=== PATIENT | female | born 1970 | race Caucasian/White ===

== ENCOUNTER 2022-07-17 22:43 | Emergency (ER) | payer MEDICARE, MEDICAID ==
[~2022-07-17] VITALS: Ht 170.2 cm; Wt 65.9 kg
--- NOTE | 2022-07-17 23:01 | NUR ---
PT REQUESTING XRAYS OF BILAT LOWER LEGS. GOOD ROM A TTHIS TIME.
--- NOTE | 2022-07-17 23:04 | NUR ---
PER DR STEFAN THAPA TOP ORDER BILAT KNEE DOWN XRAYS
--- NOTE | 2022-07-18 03:08 | NUR ---
doctor ordered for the ring on left foot second digit to be removed but the patient refused to have the ring removed and stated if i need ring removed i can call the fire dept to come out and remove the toe ring its made of silver and dont want ring removed
[2022-07-18 03:24] VITALS: BP 120/80
== END 2022-07-18 03:22 | disposition home or self-care (01) ==
LOC: ER 22:44
DX: T84.023A Instability of internal left knee prosthesis, initial encounter (principal); T84.022A Instability of internal right knee prosthesis, initial encounter; G89.29 Other chronic pain; I10 Essential (primary) hypertension; Z88.6 Allergy status to analgesic agent; Z88.2 Allergy status to sulfonamides; Z79.899 Other long term (current) drug therapy
CPT/HCPCS: 73564; 73590; 73610; 99284

== ENCOUNTER 2024-06-17 15:17 | Emergency (ER) | payer MEDICARE, MEDICAID ==
[~2024-06-17] VITALS: Ht 171.4 cm; Wt 71.8 kg
[~2024-06-17 15:17] MED LIST: ALPR-624 PO; B12 INJ; CHOL50004 PO; DIPH25CA83 PO; FOLI0.4T6 PO; GABA-530 PO; HYDR-3686 PO; HYDROCODONE PO; LORA10CA PO; PANT40TA54 PO; RIME75TA PO; Robaxin PO; SUCR1ORA12 PO; TEMA15CA PO; TRINTELLEX PO; thiamine tablet PO
[2024-06-17 18:03] LABS: BASOPHILS # (AUTO) 0.1 X10'3 (0-0.2); EOSINOPHILS # (AUTO) 0.4 X10'3 (0-0.9); EOSINOPHILS % (AUTO) 4.9 % (0-6); HEMATOCRIT 36.8 % (35.0-45.0); HEMOGLOBIN 12.5 g/dl (12.0-16.0); LYMPHOCYTES # (AUTO) 3.8 X10'3 (1.1-4.8); MEAN CORPUSCULAR HGB CONC 34.1 g/dL (33.0-36.5); MEAN PLATELET VOLUME 8.1 FL (7.4-10.4); MONOCYTES # (AUTO) 0.5 X10'3 (0-0.9); MONOCYTES % (AUTO) 6.2 % (2-12); NEUTROPHILS # (AUTO) 3.1 X10'3 (1.8-7.7); NEUTROPHILS % (AUTO) 39.9 % (42-75); PLATELET COUNT 277 X10'3 (140-440); RED BLOOD COUNT 4.04 X10'6 (4.20-5.60); RED CELL DISTRIBUTION WIDTH 13.4 % (11.5-14.5); WHITE BLOOD COUNT 7.9 X10'3 (4.5-11.0)
[2024-06-17 18:04] VITALS: TEMP 97.3
[2024-06-17 18:21] LABS: ALANINE AMINOTRANSFERASE 25 U/L (12-78); ALBUMIN 3.7 G/DL (3.4-5.0); ALBUMIN/GLOBULIN RATIO 1.2 (1.1-1.5); ALKALINE PHOSPHATASE 88 IU/L (46-116); ANION GAP 5 (8-16); ASPARTATE AMINO TRANSFERASE 16 U/L (10-37); BILIRUBIN,TOTAL 0.2 MG/DL (0.1-1.0); BLOOD UREA NITROGEN 12 MG/DL (7-18); BUN/CREATININE RATIO 16.9 (10.0-20.0); CALCIUM 8.8 MG/DL (8.5-10.1); CHLORIDE 102 MMOL/L (99-107); CREATININE 0.71 MG/DL (0.40-0.90); GLUCOSE 78 MG/DL (70-104); MAGNESIUM 1.7 MG/DL (1.5-2.4); SODIUM 139 MMOL/L (135-145); TOTAL CARBON DIOXIDE 32.4 MMOL/L (24-32); TOTAL PROTEIN 6.7 G/DL (6.4-8.2); eCRCL 91 ML/MIN; eGFR 86 ML/MIN
[2024-06-17 18:25] LABS: APTT 30 SECONDS (22-32); INR 1.1 INR; PROTHROMBIN TIME 10.9 SECONDS (9.0-12.0)
[2024-06-17] MEDS: HYDROcodone/acetaminophen 5mg/325mg tablet PO ONE (18:35)
[2024-06-17 20:11] VITALS: BP 136/82; PULSE 67; RESP 16; O2SAT 98
== END 2024-06-17 20:21 | disposition home or self-care (01) ==
LOC: ER 15:18
DX: G89.18 Other acute postprocedural pain (principal); M25.531 Pain in right wrist; M79.631 Pain in right forearm; I10 Essential (primary) hypertension; Z88.2 Allergy status to sulfonamides; Z88.5 Allergy status to narcotic agent; Z88.6 Allergy status to analgesic agent; Z88.8 Allergy status to other drugs, medicaments and biological substances; Z90.710 Acquired absence of both cervix and uterus; Z98.84 Bariatric surgery status
CPT/HCPCS: 36415; 80053; 83735; 84145; 84484; 85025; 85610; 85730; 93931; 93971; 99284